=== PATIENT | male | born 1960 | race Hispanic/Latino ===

== ENCOUNTER 2017-09-10 22:36 | Emergency (ER) | payer MEDICARE ==
[2017-09-10 22:55] VITALS: BP 130/81; PULSE 106; RESP 18; TEMP 98; O2SAT 99
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
== END 2017-09-11 00:07 | disposition home or self-care (01) ==
LOC: H.ER 22:36
DX: S09.90XA Unspecified injury of head, initial encounter (principal); J45.909 Unspecified asthma, uncomplicated; F17.200 Nicotine dependence, unspecified, uncomplicated; I12.9 Hypertensive chronic kidney disease with stage 1 through stage 4 chronic kidney disease, or unspecified chronic kidney disease; Z85.51 Personal history of malignant neoplasm of bladder; Y04.0XXA Assault by unarmed brawl or fight, initial encounter